=== PATIENT | female | born 1970 | race African-American/Black ===

== ENCOUNTER 2016-11-07 09:21 | Observation (INO) | payer SELFPAY ==
[~2016-11-07] VITALS: Ht 162.6 cm; Wt 145.0 kg
[~2016-11-07 09:21] MED LIST: ATEN-102 PO; HYDR-3535 PO; NEXI20CA PO; SERT25TA83 PO
[2016-11-07 09:23] VITALS: BP 218/107; PULSE 60; RESP 24; TEMP 98.2; O2SAT 96
[2016-11-07] MEDS ORDERED: HYDR-3583 PO (10:08)
[2016-11-07] MEDS ORDERED: SERT-132 PO ×2 (10:08→13:50)
[2016-11-07] MEDS ORDERED: ATEN100T PO (10:08)
[2016-11-07 10:20] VITALS: BP 175/84; PULSE 60
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
[2016-11-07] MEDS ORDERED: ONDANSETRON HCL 4 MG/2 ML VIAL IVP ONE (11:00)
[2016-11-07] MEDS ORDERED: MECLIZINE HCL 25 MG TAB PO ONE (11:00)
[2016-11-07] MEDS: SODIUM CHLORIDE 0.9% FLUSH 10 ML FLUSH IVF PRN ×2 (11:23→14:13)
[2016-11-07 11:25] LABS: AUTOMATED NEUTROPHIL # 3.4 TH/MM3 (1.8-7.7); BASOPHIL # 0.1 TH/MM3 (0-0.2); BASOPHIL % 0.9 % (0.0-2.0); EOSINOPHIL # 0.2 TH/MM3 (0-0.4); HEMATOCRIT 36.6 % (35.0-46.0); HEMO FLAGS DIFF FINAL; LYMPH % 33.6 % (9.0-44.0); MEAN CELL VOLUME 83.5 FL (80.0-100.0); MEAN CORPUSCULAR HGB CONC 32.3 % (32.0-36.0); MONO % 4.9 % (0.0-8.0); NEUT % 57.6 % (16.0-70.0); PLATELET COUNT 287 TH/MM3 (150-450); RED BLOOD COUNT 4.38 MIL/MM3 (4.00-5.30); RED CELL DISTRIBUTION WIDTH 15.7 % (11.6-17.2); WHITE BLOOD COUNT 5.9 TH/MM3 (4.0-11.0)
[2016-11-07 11:33] LABS: PROTHROMBIN TIME - PATIENT 11.3 SEC (9.8-11.6)
[2016-11-07 11:39] LABS: ANION GAP 4 MEQ/L (5-15); BICARBONATE 25.7 MEQ/L (21.0-32.0); BLOOD UREA NITROGEN 10 MG/DL (7-18); CHLORIDE 110 MEQ/L (98-107); GLOMERULAR FILTRATION RATE 123 ML/MIN (>89); POTASSIUM 3.9 MEQ/L (3.5-5.1); SODIUM (NA) 140 MEQ/L (136-145)
[2016-11-07 11:43] VITALS: BP 149/78
--- NOTE | 2016-11-07 11:45 | RADRPT ---
EXAM DATE/TIME: 11/07/2016 11:20 [place] COMPARISON: No previous studies available for comparison. INDICATIONS : Dizziness for two days. RADIATION DOSE: 41.12 CTDIvol (mGy) MEDICAL HISTORY : Hypertension. SURGICAL HISTORY : Tubal ligation. ENCOUNTER: Initial ACUITY: 1 day PAIN SCALE: 0/10 LOCATION: Bilateral head TECHNIQUE: Multiple contiguous axial images were obtained of the head. Using automated exposure control and adj ustment of the mA and/or kV according to patient size, radiation dose was kept as low as reasonably a chievable to obtain optimal diagnostic quality images. DICOM format image data is available electro nically for review and comparison. FINDINGS: CEREBRUM: The ventricles are normal. No evidence of midline shift, mass lesion, hemorrhage or acute infarction . No extra-axial fluid collections are seen. POSTERIOR FOSSA: The cerebellum and brainstem are intact. The 4th ventricle is midline. The cerebellopontine angle i s unremarkable. EXTRACRANIAL: The visualized portion of the orbits is intact. SKULL: The calvaria is intact. No evidence of skull fracture. CONCLUSION: No acute abnormality is identified. Bradford Whiteside MD on November 07, 2016 at 11:42 Board Certified Radiologist. This report was verified electronically.
[2016-11-07 11:56] LABS: CREATINE KINASE 73 U/L (26-192)
[2016-11-07 12:30] LABS: BACTERIA, URINE RARE /hpf; BLOOD, URINE NEG (NEG); COMMENT (UR) CATH-CULTURE IND; CULTURE IF INDICATED CATH CULTURE IND; GLUCOSE,URINE NEG (NEG); KETONE, URINE NEG (NEG); MUCUS URINE FEW /lpf (OCC); NITRITE,URINE NEG (NEG); SQUAMOUS EPITHELIAL CELL URINE 1 /hpf (0-5); URINE COLOR YELLOW (YELLW/STRAW)
[2016-11-07] MEDS ORDERED: cloNIDine HCL 0.1 MG TAB PO ONE (13:45)
[2016-11-07] MEDS ORDERED: NITROGLYCERIN 0.4 MG SL 25 TABS/BTL SL PRN (14:15)
[2016-11-07] MEDS ORDERED: ACETAMINOPHEN 500 MG CPLT PO PRN (14:15)
[2016-11-07] MEDS ORDERED: ONDANSETRON HCL 4 MG/2 ML VIAL IV PUSH PRN (14:15)
[2016-11-07 14:40] VITALS: BP 172/79; PULSE 52; RESP 17; O2SAT 99
[2016-11-07 14:50] LABS: CREATINE KINASE 80 U/L (26-192)
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
--- NOTE | 2016-11-07 15:15 | HHI.DCPOC ---
Discharge Care Plan Diagnosis: (1) Hypertension (2) Situational stress (3) Vertigo Goals to Promote Your Health * To prevent worsening of your condition and complications * To maintain your health at the optimal level Directions to Meet Your Goals Take your medications as prescribed Follow your dietary instruction Follow activity as directed Keep your appointments as scheduled Take your immunizations and boosters as scheduled If your symptoms worsen call your PCP, if no PCP go to Urgent Care Center or Emergency Room Smoking is Dangerous to Your Health. Avoid second hand smoke Call the 24-hour hour crisis hotline for domestic abuse at Tiffany Sneed Nov 07, 2016 15:15
[2016-11-07] MEDS ORDERED: HYDR25TA5 PO (15:18)
[2016-11-07] MEDS ORDERED: HYDROCHLOROTHIAZIDE 25 MG TAB PO ONE (15:30)
[2016-11-07] MEDS ORDERED: SODIUM CHLORIDE 0.9% FLUSH 10 ML FLUSH IV FLUSH SCH (21:00)
[2016-11-08] MEDS ORDERED: ASPIRIN 325 MG TAB PO SCH (09:00)
--- NOTE | 2016-11-09 16:43 | EKG ---
Date Performed: 11/07/2016 Time Performed: 10:16:28 PTAGE: 46 years EKG: ECTOPIC ATRIAL BRADYCARDIA ABNORMAL RHYTHM ECG Since PREVIOUS TRACING , no significant change noted PREVIOUS TRACIN06/30/2014 01.19 DOCTOR: Yanely Renee Interpretating Date/Time 11/09/2016 16:42:50
--- NOTE | 2016-11-09 16:44 | EKG ---
Date Performed: 11/07/2016 Time Performed: 14:00:23 PTAGE: 46 years EKG: SINUS BRADYCARDIA WITH FIRST DEGREE AV BLOCK ABNORMAL ECG Since PREVIOUS TRACING , no significant change noted PREVIOUS TRACIN11/07/2016 10.16 DOCTOR: Yanely Renee Interpretating Date/Time 11/09/2016 16:43:34
== END 2016-11-07 17:00 | disposition home or self-care (01) ==
LOC: NEPE 09:21 → NEDA 13:50
DX: I10 Essential (primary) hypertension (principal); R42 Dizziness and giddiness; R07.89 Other chest pain; R94.31 Abnormal electrocardiogram [ECG] [EKG]; R82.79 Other abnormal findings on microbiological examination of urine; M54.5 Low back pain; G89.29 Other chronic pain; K21.9 Gastro-esophageal reflux disease without esophagitis; E66.01 Morbid (severe) obesity due to excess calories; Z68.43 Body mass index [BMI] 50.0-59.9, adult
CPT/HCPCS: 70450; 80048; 81001; 82550; 84484; 85025; 85610; 87086; 93005; 96374; 99285; G0378; J2405